=== PATIENT | male | born 2000 | race Caucasian/White ===

== ENCOUNTER 2019-05-15 21:45 | Emergency (ER) | payer OTHER ==
[2019-05-15] MEDS ORDERED: 0.9 % SODIUM CHLORIDE 1,000 ML BAG IV ONE (22:59)
[2019-05-15] MEDS ORDERED: KETOROLAC 30 MG/ML VIAL IVP ONE (22:59)
[2019-05-15] MEDS ORDERED: ONDANSETRON HCL IV 4 MG/2 ML VIAL IVP ONE (23:17)
[2019-05-15 23:27] LABS: ABSOLUTE NEUTROPHIL COUNT 3.59; BASO % 0.6 % (0-6); EOS % 2.4 % (0-6); GRAN % 51.2 % (47-80); HEMATOCRIT 44.6 % (42.0-52.0); HEMOGLOBIN 15.2 gm/dl (14.0-18.0); LYMPH % 35.4 % (16-45); MEAN CELL VOLUME 89.4 fl (81-97); MEAN CORPUSCULAR HEMOGLOBIN 30.5 pg (27-33); MEAN CORPUSCULAR HGB CONC 34.1 g/dl (32-36); MEAN PLATELET VOLUME 8.7 fl (7.4-10.4); MONO % 10.4 % (0-9); PLATELET COUNT 416 K/uL (130-400); RED BLOOD COUNT 4.99 M/uL (4.40-5.70); RED CELL DISTRIBUTION WIDTH 13.8 % (11.5-14.5)
[2019-05-15 23:35] LABS: BLOOD UREA NITROGEN 16 mg/dL (6-20); CREATININE 0.9 mg/dL (0.7-1.2); EST GLOMERULAR FILTRATION RATE > 60 mL/min
[2019-05-15 23:38] LABS: GLUCOSE,RANDOM 111 mg/dL (74-109)
--- NOTE | 2019-05-16 00:21 | Emergency Department Record ---
History of Present Illness - General Chief complaint: Pain Stated complaint: BODY ACHES,STIFF NECK,SORE THROAT Time Seen by Provider: 05/15/19 22:44 Source: Patient, Family Mode of Arrival: Ambulatory Limitations: No limitations - History of Present Illness Initial comments: pt went to urgent care at [facility] for neck and back pain with no fever and was told he might have encephalitis and that he should go to an emerg dept for a possible spinal tap. he still has no fever and no other symptoms. his mom thought he might have strep MD Complaint: Neck Pain, Other -: Hour(s) Severity scale (1-10): 6 Quality: Aching Consistency: Constant Worsens with: Palpation Associated Symptoms: Denies other symptoms - Related Data Previous Rx's Medication Instructions Recorded Ibuprofen [Motrin 600Mg] 600 mg PO Q6H #20 tablet 05/16/19 Allergies Allergy/AdvReac Type Severity Reaction Status Date / Time amoxicillin [From Augmentin] AdvReac ABDOMINAL Verified 05/15/19 22:16 PAIN clavulanic acid AdvReac ABDOMINAL Verified 05/15/19 22:16 [From Augmentin] PAIN Travel Screening - Travel/Exposure Within Last 30 Days Have you traveled within the last 30 days?: No Review of Systems Reviewed: No additional complaints except as noted below Constitutional: Reports: As per HPI. Denies: Chills, Fever, Malaise, Night sweats, Weakness, Weight change Eyes: Reports: As per HPI. Denies: Eye discharge, Eye pain, Photophobia, Vision change ENT: Reports: As per HPI. Denies: Congestion, Dental pain, Ear pain, Epistaxis, Hearing loss, Throat pain Respiratory: Reports: As per HPI. Denies: Cough, Dyspnea, Hemoptysis, Stridor, Wheezes Cardiovascular: Reports: As per HPI. Denies: Arrhythmia, Chest pain, Dyspnea on exertion, Edema, Murmurs, Orthopnea, Palpitations, Paroxysmal nocturnal dyspnea, Rheumatic Fever, Syncope Endocrine: Reports: As per HPI. Denies: Fatigue, Heat or cold intolerance, Polydipsia, Polyuria Gastrointestinal: Reports: As per HPI. Denies: Abdominal pain, Constipation, Diarrhea, Hematemesis, Hematochezia, Melena, Nausea, Vomiting Genitourinary: Reports: As per HPI. Denies: Dysuria, Frequency, Hematuria, Incontinence, Retention, Testicular pain, Testicular mass, Urgency Musculoskeletal: Reports: As per HPI. Denies: Arthralgia, Back pain, Gout, Joint swelling, Myalgia, Neck pain Skin: Reports: As per HPI. Denies: Bruising, Change in color, Change in hair/nails, Lesions, Pruritus, Rash Neurological: Reports: As per HPI. Denies: Abnormal gait, Confusion, Headache, Numbness, Paresthesias, Seizure, Tingling, Tremors, Vertigo, Weakness Psychiatric: Reports: As per HPI. Denies: Anxiety, Auditory hallucinations, Depression, Homicidal thoughts, Suicidal thoughts, Visual hallucinations Hematological/Lymphatic: Reports: As per HPI. Denies: Anemia, Blood Clots, Easy bleeding, Easy bruising, Swollen glands Past Medical History - SOCIAL HISTORY Smoking Status: Never smoker Alcohol Use: None Drug Use: None - RESPIRATORY Hx Respiratory Disorders: No Hx Asthma: Yes - CARDIOVASCULAR Hx Cardio Disorders: No - NEURO Hx Neuro Disorders: No - GI Hx Reflux: Yes - Hx Genitourinary Disorders: No - ENDOCRINE Hx Endocrine Disorders: No - MUSCULOSKELETAL Hx Musculoskeletal Disorders: No - PSYCH Hx Behavior Problems: Yes (add, bipolar) - HEMATOLOGY/ONCOLOGY Hx Hematology/Oncology Disorders: No Family Medical History Any Significant Family History?: No Physical Exam - General General Appearance: Alert, Oriented x3, Cooperative, No acute distress - Head Head exam: Normal inspection - Eye Eye exam: Normal appearance, PERRL, EOMI Pupils: Normal accommodation - ENT ENT exam: Normal exam, Mucous membranes moist, Normal external ear exam, Normal orophraynx Ear exam: Normal external inspection. negative: External canal tenderness Nasal Exam: Normal inspection. negative: Discharge, Sinus tenderness Mouth exam: Normal external inspection, Tongue normal Teeth exam: Normal inspection. negative: Dental caries Throat exam: Normal inspection. negative: Tonsillar erythema, Tonsillar exudate - Neck Neck exam: Normal inspection, Full ROM, Tenderness - Respiratory Respiratory exam: Normal lung sounds bilaterally. negative: Respiratory distress - Cardiovascular Cardiovascular Exam: Regular rate, Normal rhythm, Normal heart sounds - GI/Abdominal GI/Abdominal exam: Soft, Normal bowel sounds. negative: Tenderness - Rectal Rectal exam: Deferred - exam: Deferred - Extremities Extremities exam: Normal inspection, Full ROM, Normal capillary refill. negative: Tenderness - Back Back exam: Reports: Normal inspection, Full ROM, Muscle spasm, Tenderness. Denies: Rash noted - Neurological Neurological exam: Alert, CN II-XII intact, Normal gait, Oriented X3 - Psychiatric Psychiatric exam: Normal affect, Normal mood - Skin Skin exam: Dry, Intact, Normal color, Warm Course Vital Signs 05/15/19 05/16/19 22:10 00:02 Temperature 97.7 F Pulse Rate 66 Pulse Rate [ 62 Pulse Ox Probe] Respiratory 17 Rate Blood Pressure 117/72 Blood Pressure 117/49 [Right Arm] Pulse Ox 98 99 - Reevaluation(s) Reevaluation #1: 05/16/19 00:45 pt feels much better. pain is down to a 1. no fever, no bates Medical Decision Making - Lab Data Result diagrams: 05/15/19 23:12 05/15/19 23:12 Lab Results 05/15/19 05/15/19 05/15/19 Range/Units 23:12 23:12 23:29 WBC 7.0 (4.2-12.2) K/uL RBC 4.99 (4.40-5.70) M/uL Hgb 15.2 (14.0-18.0) gm/dl Hct 44.6 (42.0-52.0) % MCV 89.4 (81-97) fl MCH 30.5 (27-33) pg MCHC 34.1 (32-36) g/dl RDW 13.8 (11.5-14.5) % Plt Count 416 H (130-400) K/uL MPV 8.7 (7.4-10.4) fl Gran % 51.2 (47-80) % Lymphocytes % 35.4 (16-45) % Monocytes % 10.4 H (0-9) % Eosinophils % 2.4 (0-6) % Basophils % 0.6 (0-6) % Absolute Neutrophils 3.59 Sodium 141 (136-145) mmol/L Potassium 4.5 (3.4-4.5) mmol/L Chloride 104 (98-107) mmol/L Carbon Dioxide 26.0 (22-29) mmol/L Anion Gap 11.0 (7-16) BUN 16 (6-20) mg/dL Creatinine 0.9 (0.7-1.2) mg/dL Estimated GFR > 60 mL/min Random Glucose 111 H (74-109) mg/dL Calcium 9.6 (8.6-10.0) mg/dL Group A Strep Screen Negative (NEGATIVE) Disposition Disposition: Discharge Clinical Impression: Myalgia Disposition: Home, Self-Care Condition: (1) Good Instructions: Musculoskeletal Pain (ED) Additional Instructions: follow up with family doctor. return sooner if worse. ice and moist heat to sore areas Prescriptions: Ibuprofen [Motrin 600Mg] 600 mg PO Q6H #20 tablet Forms: Patient Portal Access Quality - Quality Measures Quality Measures: N/A - Blood Pressure Screening Does Patient Have Any of the Following: No Blood Pressure Classification: Normal BP Reading Systolic Measurement: 117 Diastolic Measurement: 72 Screening for High Blood Pressure: < Normal BP, F/U Not Required > [G8783]
== END 2019-05-16 01:01 | disposition home or self-care (01) ==
LOC: ER 21:45
DX: M79.18 Myalgia, other site (principal); M54.9 Dorsalgia, unspecified; J02.9 Acute pharyngitis, unspecified; M54.2 Cervicalgia
CPT/HCPCS: 80048; 85025; 87880; 96374; 96375; 99284; J1885; J2405; J7030